=== PATIENT | female | born 1945 | race Caucasian/White ===

== ENCOUNTER 2023-10-09 09:54 | Outpatient (CLI) | payer MEDICARE, MEDICAID ==
[2023-10-09 10:47] LABS: ALBUMIN 3.8 G/DL (3.4-5.0); ANION GAP 10 (8-16); BLOOD UREA NITROGEN 30 MG/DL (7-18); CALCIUM 9.6 MG/DL (8.5-10.1); CHLORIDE 104 MMOL/L (99-107); CREATININE 0.91 MG/DL (0.40-0.90); GLUCOSE 157 MG/DL (70-104); SODIUM 142 MMOL/L (135-145); TOTAL CARBON DIOXIDE 28.4 MMOL/L (24-32); eGFR 59 ML/MIN
[2023-10-09] MEDS ORDERED: GADOTERATE MEGLUMINE 7.5 MMOL/15 ML VIAL IV ONE (12:24)
== END 2023-10-09 23:59 | disposition home or self-care (01) ==
LOC: MRI 09:54
PROVIDERS: ATTEND Internal Medicine
DX: M48.03 Spinal stenosis, cervicothoracic region (principal); M47.812 Spondylosis without myelopathy or radiculopathy, cervical region; M86.9 Osteomyelitis, unspecified
CPT/HCPCS: 36415; 72156; 80048; A9575

== ENCOUNTER 2023-10-13 11:13 | Outpatient (CLI) | payer MEDICARE, MEDICAID | END 2023-10-13 23:59 | disposition home or self-care (01) | LOC: CARD DIAG 11:13 | PROVIDERS: ATTEND Physician Assistant | DX: I08.8 Other rheumatic multiple valve diseases (principal); R01.1 Cardiac murmur, unspecified; M79.642 Pain in left hand | CPT/HCPCS: 73110; 73130; C8929; 93306 ==

== ENCOUNTER 2023-10-14 10:28 | Outpatient (CLI) | payer MEDICARE, MEDICAID | END 2023-10-14 23:59 | disposition home or self-care (01) | LOC: MRI 10:28 → EDUNIT# 11:00 → MRI 23:59 | PROVIDERS: ATTEND Internal Medicine | DX: M19.042 Primary osteoarthritis, left hand (principal); R22.32 Localized swelling, mass and lump, left upper limb; W55.01XD Bitten by cat, subsequent encounter | CPT/HCPCS: 73218 ==

== ENCOUNTER 2023-12-30 09:38 | Day surgery (SDC) | payer MEDICARE, MEDICAID ==
[2023-12-26 12:40] LABS: BASOPHILS # (AUTO) 0.1 X10'3 (0-0.2); BASOPHILS % (AUTO) 0.9 % (0-1); EOSINOPHILS # (AUTO) 0.1 X10'3 (0-0.9); EOSINOPHILS % (AUTO) 0.9 % (0-6); HEMATOCRIT 37.1 % (35.0-45.0); HEMOGLOBIN 12.9 g/dl (12.0-16.0); LYMPHOCYTES # (AUTO) 2.3 X10'3 (1.1-4.8); LYMPHOCYTES % (AUTO) 22.6 % (21-51); MEAN CORPUSCULAR HEMOGLOBIN 33.2 PG (27.0-31.0); MEAN CORPUSCULAR HGB CONC 34.9 g/dL (33.0-36.5); MEAN PLATELET VOLUME 8.2 FL (7.4-10.4); MONOCYTES # (AUTO) 0.8 X10'3 (0-0.9); MONOCYTES % (AUTO) 7.8 % (2-12); NEUTROPHILS # (AUTO) 6.9 X10'3 (1.8-7.7); NEUTROPHILS % (AUTO) 67.8 % (42-75); PLATELET COUNT 229 X10'3 (140-440); RED CELL DISTRIBUTION WIDTH 13.9 % (11.5-14.5); WHITE BLOOD COUNT 10.2 X10'3 (4.5-11.0)
[2023-12-26 12:47] LABS: APTT 25 SECONDS (22-32)
[2023-12-26 12:50] LABS: ALBUMIN 3.9 G/DL (3.4-5.0); ANION GAP 5 (8-16); BLOOD UREA NITROGEN 22 MG/DL (7-18); BUN/CREATININE RATIO 22.7 (10.0-20.0); CALCIUM 9.1 MG/DL (8.5-10.1); CHLORIDE 105 MMOL/L (99-107); CHOL/HDL RATIO 3.2 (0.00-4.99); CHOLESTEROL 201 MG/DL (0-200); CREATININE 0.97 MG/DL (0.40-0.90); GLUCOSE 138 MG/DL (70-104); HDL CHOLESTEROL 62 MG/DL (35-60); LDL CHOLESTEROL 115 MG/DL (50-100); POTASSIUM 3.8 MMOL/L (3.5-5.1); SODIUM 140 MMOL/L (135-145); TOTAL CARBON DIOXIDE 29.6 MMOL/L (24-32); TRIGLYCERIDES 168 MG/DL (20-135); eGFR 55 ML/MIN
[~2023-12-30] VITALS: Ht 152.4 cm; Wt 66.5 kg
[2023-12-30] VITALS (10 sets, daily range): BP systolic 145–175; BP diastolic 50–72; PULSE 56–64; RESP 12–20; TEMP 98; O2SAT 15–97
[2023-12-30] MEDS ORDERED: ATEN25TA PO (10:10)
[2023-12-30] MEDS ORDERED: NITR0.3T10 SL (10:10)
[2023-12-30] MEDS ORDERED: ESCI20TA39 PO (10:10)
[2023-12-30] MEDS ORDERED: OSC500T PO (10:10)
[2023-12-30] MEDS ORDERED: TRAZ150T78 PO (10:10)
[2023-12-30] MEDS ORDERED: BENA40TA72 PO (10:10)
[2023-12-30] MEDS ORDERED: CHOL200074 PO (10:10)
[2023-12-30] MEDS ORDERED: ASPI-611 PO (10:10)
[2023-12-30] MEDS ORDERED: DULO20CA18 PO (10:10)
[2023-12-30] MEDS ORDERED: ATOR40TA72 PO (10:10)
[2023-12-30] MEDS ORDERED: HYDR25TA4 PO (10:10)
[2023-12-30] MEDS ORDERED: LIDOcaine 1% (10mg/ml) 2ml vial ONE (11:16)
[2023-12-30] MEDS ORDERED: iohexol 350MG/ML 100ml bottle IV ONE (11:16)
[2023-12-30] MEDS ORDERED: heparin 1,000unit/ml 10ml vial 10 ML ONE (11:16)
[2023-12-30] MEDS ORDERED: verapamil 2.5 mg/ml inj IV ONE ×2 (11:16→11:56)
[2023-12-30] MEDS ORDERED: nitroGLYCERIN 500mcg/5mL D5W 5 ML IV ONE (11:17)
[2023-12-30] MEDS ORDERED: LIDOcaine 1% 30ml preserv. free vial ONE (11:26)
[2023-12-30] MEDS ORDERED: midazolam 1 mg/ML 2ml injection ONE (11:34)
[2023-12-30] MEDS ORDERED: fentaNYL/PF 50MCG/1 ML 2ML syringe ONE (11:34)
[2023-12-30] MEDS: normal saline 1,000 ML IV SCH (12:03)
[2023-12-30] MEDS: LORazepam 0.5 MG tablet PO PRN (12:03)
[2023-12-30] MEDS: diphenhydrAMINE 25mg capsule PO PRN (12:03)
[2023-12-30 13:27] LABS: ISTAT HGB ART 11.2 g/dl (12.0-16.0); ISTAT Hct ART 33 %PCV (35-45); ISTAT O2 SATURATION ARTERIAL 94 % (95-98); ISTAT SOURCE ART
[2023-12-30] MEDS ORDERED: HYDROcodone/acetaminophen 10/325mg tab PO PRN (13:50)
[2023-12-30] MEDS ORDERED: HYDROcodone/acetaminophen 5mg/325mg tablet PO PRN (13:50)
== END 2023-12-30 16:20 | disposition home or self-care (01) ==
LOC: SSTAY O 09:38
PROVIDERS: ATTEND Internal Medicine Interventional Cardiology
DX: I35.0 Nonrheumatic aortic (valve) stenosis (principal); I25.10 Atherosclerotic heart disease of native coronary artery without angina pectoris; R94.31 Abnormal electrocardiogram [ECG] [EKG]; I10 Essential (primary) hypertension; E11.9 Type 2 diabetes mellitus without complications; E78.00 Pure hypercholesterolemia, unspecified; I48.91 Unspecified atrial fibrillation; Z85.3 Personal history of malignant neoplasm of breast; Z79.899 Other long term (current) drug therapy; Z91.030 Bee allergy status; Z88.8 Allergy status to other drugs, medicaments and biological substances
CPT/HCPCS: 36415; 80048; 80061; 82803; 85014; 85025; 85610; 85730; 93005; 93456; 99152; A6258; A6402; C1751; C1894; J1644; J2003; J2250; J3010; J3490; J7030; Q0163; Q9967; Z7610; A6449

== ENCOUNTER 2024-01-27 10:34 | Outpatient (CLI) | payer MEDICARE, MEDICAID ==
[~2024-01-27 10:34] MED LIST: ASPI-611 PO; ATEN25TA PO; ATOR40TA72 PO; BENA40TA72 PO; CHOL200074 PO; DULO20CA18 PO; ESCI20TA39 PO; HYDR25TA4 PO; NITR0.3T10 SL; OSC500T PO; TRAZ150T78 PO
[2024-01-27 11:14] LABS: BASOPHILS # (AUTO) 0.1 X10'3 (0-0.2); BASOPHILS % (AUTO) 0.7 % (0-1); EOSINOPHILS # (AUTO) 0.2 X10'3 (0-0.9); EOSINOPHILS % (AUTO) 1.6 % (0-6); HEMATOCRIT 34.6 % (35.0-45.0); HEMOGLOBIN 12.2 g/dl (12.0-16.0); LYMPHOCYTES # (AUTO) 1.9 X10'3 (1.1-4.8); LYMPHOCYTES % (AUTO) 19.3 % (21-51); MEAN CORPUSCULAR HEMOGLOBIN 33.5 PG (27.0-31.0); MEAN CORPUSCULAR HGB CONC 35.4 g/dL (33.0-36.5); MEAN CORPUSCULAR VOLUME 94.7 FL (78-98); MEAN PLATELET VOLUME 7.6 FL (7.4-10.4); MONOCYTES # (AUTO) 0.8 X10'3 (0-0.9); MONOCYTES % (AUTO) 7.9 % (2-12); NEUTROPHILS % (AUTO) 70.5 % (42-75); PLATELET COUNT 221 X10'3 (140-440); RED BLOOD COUNT 3.66 X10'6 (4.20-5.60); WHITE BLOOD COUNT 9.9 X10'3 (4.5-11.0)
[2024-01-27 12:03] LABS: ALANINE AMINOTRANSFERASE 18 U/L (12-78); ALBUMIN 3.6 G/DL (3.4-5.0); ALBUMIN/GLOBULIN RATIO 1.1 (1.1-1.5); ALKALINE PHOSPHATASE 57 IU/L (46-116); ANION GAP 6 (8-16); ASPARTATE AMINO TRANSFERASE 16 U/L (10-37); BILIRUBIN,TOTAL 0.4 MG/DL (0.1-1.0); BLOOD UREA NITROGEN 22 MG/DL (7-18); BUN/CREATININE RATIO 27.2 (10.0-20.0); CALCIUM 8.9 MG/DL (8.5-10.1); CHLORIDE 106 MMOL/L (99-107); CREATININE 0.81 MG/DL (0.40-0.90); GLUCOSE 128 MG/DL (70-104); POTASSIUM 4.2 MMOL/L (3.5-5.1); PRO BRAIN NATRIURETIC PEPTIDE 627 PG/ML (0-450); SODIUM 141 MMOL/L (135-145); TOTAL CARBON DIOXIDE 28.7 MMOL/L (24-32); TOTAL PROTEIN 6.9 G/DL (6.4-8.2); eGFR 68 ML/MIN
[2024-01-27] MEDS ORDERED: IODIXANOL 320 MG/ML INFUS..BTL 100ML IV ONE (12:05)
[2024-01-27 12:49] LABS: APTT 25 SECONDS (22-32)
[2024-01-27 12:59] LABS: PROTHROMBIN TIME 10.3 SECONDS (9.0-12.0)
== END 2024-01-27 23:59 | disposition home or self-care (01) ==
LOC: RAD 10:34
PROVIDERS: ATTEND Internal Medicine Cardiovascular Disease
DX: I35.0 Nonrheumatic aortic (valve) stenosis (principal); R06.02 Shortness of breath; I65.29 Occlusion and stenosis of unspecified carotid artery; N28.1 Cyst of kidney, acquired; K57.30 Diverticulosis of large intestine without perforation or abscess without bleeding; E27.8 Other specified disorders of adrenal gland; J98.11 Atelectasis; J98.4 Other disorders of lung
CPT/HCPCS: 36415; 71046; 71275; 74174; 75572; 80053; 83880; 85025; 85610; 85730; Q9967

== ENCOUNTER 2024-04-04 13:28 | Emergency (ER) | payer MEDICARE, MEDICAID ==
[~2024-04-04] VITALS: Ht 152.4 cm; Wt 75.0 kg
[~2024-04-04 13:28] MED LIST changes: -ATEN25TA PO; +ATEN50TA8 PO; +ONDA-243 PO
[2024-04-04] MEDS: diphenhydrAMINE 50 mg/ml inj IV ONE (14:08)
[2024-04-04] MEDS: LORazepam 2 mg/ml vial IV ONE (14:11)
[2024-04-04 14:30] LABS: ALANINE AMINOTRANSFERASE 21 U/L (12-78); ALBUMIN 3.5 G/DL (3.4-5.0); ALKALINE PHOSPHATASE 63 IU/L (46-116); ANION GAP 7 (8-16); BILIRUBIN,TOTAL 0.5 MG/DL (0.1-1.0); BLOOD UREA NITROGEN 18 MG/DL (7-18); BUN/CREATININE RATIO 20.7 (10.0-20.0); CHLORIDE 103 MMOL/L (99-107); CREATININE 0.87 MG/DL (0.40-0.90); GLUCOSE 104 MG/DL (70-104); SODIUM 140 MMOL/L (135-145); TOTAL CARBON DIOXIDE 29.9 MMOL/L (24-32); TOTAL PROTEIN 6.9 G/DL (6.4-8.2); eCRCL 36 ML/MIN; eGFR 62 ML/MIN
[2024-04-04 14:32] LABS: ASPARTATE AMINO TRANSFERASE 26 U/L (10-37); POTASSIUM 4.7 MMOL/L (3.5-5.1)
[2024-04-04 15:06] LABS: BILIRUBIN,URINE NEGATIVE (Neg); CLARITY,URINE CLEAR (Clear); COLOR,URINE YELLOW (Yellow); GLUCOSE, URINE NEGATIVE (Neg); KETONES,URINE NEGATIVE (Neg); LEUKOCYTE ESTERASE ,URINE NEGATIVE (Neg); NITRITES, URINE NEGATIVE (Neg); OCCULT BLOOD,URINE NEGATIVE (Neg); PH,URINE 7.5 (4.8-8.0); PROTEIN,URINE 100 mg/dl (Neg); UROBILINOGEN,URINE 0.2 E.U/dL (0.2-1.0)
[2024-04-04 15:11] LABS: UA COLLECTION TYPE NON-SPECIFIED
[2024-04-04 15:14] LABS: BASOPHILS # (AUTO) 0.1 X10'3 (0-0.2); BASOPHILS % (AUTO) 0.7 % (0-1); EOSINOPHILS # (AUTO) 0.1 X10'3 (0-0.9); EOSINOPHILS % (AUTO) 0.6 % (0-6); HEMOGLOBIN 10.4 g/dl (12.0-16.0); LYMPHOCYTES # (AUTO) 2.1 X10'3 (1.1-4.8); LYMPHOCYTES % (AUTO) 23.7 % (21-51); MEAN PLATELET VOLUME 7.9 FL (7.4-10.4); MONOCYTES # (AUTO) 0.9 X10'3 (0-0.9); NEUTROPHILS # (AUTO) 5.7 X10'3 (1.8-7.7); PLATELET COUNT 172 X10'3 (140-440); WHITE BLOOD COUNT 8.7 X10'3 (4.5-11.0)
[2024-04-04 15:30] LABS: BACTERIA,URINE FEW /HPF (Neg); MUCUS STRANDS FEW /LPF (Neg); RBC,URINE 0-2 /HPF (0-2); SQUAMOUS EPITHELIAL CELL,UR FEW /LPF (FEW); TRANSITIONAL EPI CELLS,URINE FEW /HPF; URIC ACID CRYSTALS FEW /HPF (NEGATIVE); WBC,URINE 0-4 /HPF (0-4)
[2024-04-04 15:37] VITALS: BP 141/57; PULSE 62; RESP 16; O2SAT 93
[2024-04-04 15:43] LABS: HEMATOCRIT 29.1 % (35.0-45.0); MEAN CORPUSCULAR HEMOGLOBIN 33.5 PG (27.0-31.0); MEAN CORPUSCULAR HGB CONC 35.7 g/dL (33.0-36.5); MEAN CORPUSCULAR VOLUME 93.9 FL (78-98)
[2024-04-04 16:03] VITALS: TEMP 99.1
== END 2024-04-04 16:04 | disposition home or self-care (01) ==
LOC: ER 13:28
DX: Z91.030 Bee allergy status (principal); Z88.6 Allergy status to analgesic agent; Z88.8 Allergy status to other drugs, medicaments and biological substances; Z95.2 Presence of prosthetic heart valve; G25.3 Myoclonus
CPT/HCPCS: 36415; 71045; 80053; 81001; 85025; 96374; 96375; 99284; J1200; J2060

== ENCOUNTER 2025-01-09 12:37 | Emergency (ER) | payer MEDICARE, MEDICAID ==
[~2025-01-09] VITALS: Ht 152.4 cm; Wt 67.3 kg
--- NOTE | 2025-01-09 12:42 | ELECTROCARDIOGRAPH REPORT ---
[facility] Test Date: 2025-01-09 Test Time: 12:40:32 Pat Name: JOHNNIE GONZALES Department: EMERGENCY ROOM Room: Gender: F Crew Dispatcher: JERMAN : 1945 Requested By: LINSEY FRAGA Order Number: [id number] Reading MD: Dr. Ervin Curran Measurements Intervals Arnold Rate: 73 P: 29 IN: 175 QRS: 23 QRSD: 105 T: -10 QT: 394 QTc: 435 Interpretive Statements Sinus rhythm Borderline repolarization abnormality Electronically Signed On 01-10-2025 7:00:[address] Ervin Curran Please click the below link to view image of tracing.
[2025-01-09 12:43] VITALS: BP 130/39; PULSE 73; O2SAT 90
[2025-01-09 13:11] VITALS: RESP 13
[2025-01-09 13:31] LABS: MEAN PLATELET VOLUME 8.2 FL (7.4-10.4); RED CELL DISTRIBUTION WIDTH 14.0 % (11.5-14.5)
--- NOTE | 2025-01-09 13:38 | Physician Documentation ---
History of Present Illness ~ Chief Complaint: Chest Pain Stated Complaint: CHEST PAIN Time Seen by MD: 13:18 Primary Medical Doctor: Dr. Clinton Source: patient, family Mode of Arrival: POV, Ambulatory Exam Limitations: no limitations HPI 79-year-old female brought in by daughter for chest pain that is been going on for approximately 10 days. Patient states that the chest pain started when she woke up about a week and a half ago. Patient denies any cough or shortness of breath. Patient states the pain is constant like a dull ache but then becomes sharp with movement and deep breathing. Patient states the only thing different that is occurred in the past 3-4 weeks was the methods in which she smokes marijuana. Daughter states she has smoked mainly at night for several years but recently has started to use a vape for marijuana. Patient states she has use at for several weeks prior to the chest pain started. 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 Ejection fraction then was 70%. Patient denies any shortness of breath, fevers, cough for congestion. Medication Reconciliation Allergies: Coded Allergies: bee venom protein (honey bee) (Verified Allergy, Unknown, SWELLING, ITCHING, 01/09/25) latex (Verified Allergy, Unknown, ITCHY, RED, 01/09/25) Uncoded Allergies: UNCODED ALLERGY (Allergy, Unknown, NAUSEA, 03/31/24) Scheduled Aspirin (Aspir 81), 1 TAB PO DAILY, (Reported) Atenolol (Atenolol), 1 TAB PO DAILY Atorvastatin Calcium (Atorvastatin Calcium), 1 TAB PO DAILY, (Reported) Benazepril HCl (Benazepril HCl), 1 TAB PO DAILY, (Reported) Calcium Carbonate* (Oscal*), 1 TAB PO Q12H, (Reported) Cholecalciferol (Vitamin D3) (Vitamin D3), 1 CAP PO DAILY, (Reported) Duloxetine HCl (Duloxetine HCl), 1 CAP PO HS, (Reported) Escitalopram Oxalate (Escitalopram Oxalate), 1 TAB PO DAILY, (Reported) Hydrochlorothiazide (Hydrochlorothiazide), 1 TAB PO DAILY, (Reported) Nitroglycerin (Nitroglycerin), 1 TAB SL PRN, (Reported) Trazodone Hcl (Trazodone Hcl), 1 TAB PO HS, (Reported) Scheduled PRN ONDANSETRON ODT 4mg tablet (Ondansetron Odt), 0.5 TAB PO Q6H PRN PRN for nausea/vomiting Past Medical History Past Medical History: *CARDIOVASCULAR*, Coronary Artery Disease, Heart Valve Di sease, Mitral Valve Stenosis Past Surgical History: heart valve surgery Drug Use: marijuana Lives with: Alone Lives In: Home Occupation: retired Review of Systems All Other Systems at this time: Reviewed and Negative Cardiovascular: Reports: see HPI Physical Exam Vital Signs: RN Vital Signs have been reviewed: Yes, Temperature: 97.7, Source: Temporal, Heart Rate: 73, Respiratory Rate: 13, BP: 130/39, Pulse Oximetry: 90, Weight: 67.300 Oxygen Flow Rate: 0 Physical Exam General: Alert, no apparent distress. HEENT: PERRL, EOMI, no injection, moist mucous membranes. Neck: Full range of motion. Respiratory: Lungs clear, no respiratory distress. Chest: No accessory muscle use. Tenderness to the costochondral region of her sternum to the left but no obvious deformity or swelling Cardiovascular: Regular rate and rhythm, no murmurs. S1-S2 murmur auscultated by TAVR. Extremities: Normal range of motion, no deformity. Neurologic: Oriented x4. Psychiatric: Normal mood and affect. Skin: Normal color, warm and dry. No edema, no ecchymosis. Progress Results/Orders Results/Orders Vital Signs 01/09/25 01/09/25 12:43 13:11 Temp 97.7 Pulse 73 Resp 20 13 B/P (MAP) 130/39 Pulse Ox 90 O2 Flow Rate 0 Laboratory Tests Test 01/09/25 13:04 White Blood Count 6.6 Red Blood Count 3.24 L Hemoglobin 11.1 L Hematocrit 32.0 L Mean Corpuscular Volume 98.6 H Mean Corpuscular Hemoglobin 34.3 H Mean Corpuscular Hemoglobin Concent 34.8 Red Cell Distribution Width 14.0 Platelet Count 198 Mean Platelet Volume 8.2 Neutrophils (%) (Auto) 74.8 Lymphocytes (%) (Auto) 17.8 L Monocytes (%) (Auto) 6.4 Eosinophils (%) (Auto) 0.5 Basophils (%) (Auto) 0.5 Neutrophils # (Auto) 4.9 Lymphocytes # (Auto) 1.2 Monocytes # (Auto) 0.4 Eosinophils # (Auto) 0.0 Basophils # (Auto) 0.0 CBC Comment Sodium Level 140 Potassium Level 3.9 Chloride Level 104 Carbon Dioxide Level 27.4 Anion Gap 9 Blood Urea Nitrogen 36 H Creatinine 1.00 H Estimated GFR/1.73 m2 53 BUN/Creatinine Ratio 36.0 H Glucose Level 205 H Calcium Level 8.9 Troponin I High Sensitivity 8 Pro-B-Type Natriuretic Peptide 180 Albumin 3.6 Chemistry Comments EKG/XRAY/CT/US/VASC/MRI EKG : Additional Comment 1240: Sinus rhythm at [address]-T abnormalities normal axis Chest X-Ray : Additional Comments DI CHEST,SINGLE VIEW, HISTORY: CP COMPARISON: DI CHEST,SINGLE VIEW on DOS: 04/04/24, DI CHEST,SINGLE VIEW on DOS: 04/02/24, DI CHEST,TWO VIEWS on DOS: 03/26/24 DI CHEST,SINGLE VIEW on DOS: 04/04/24, DI CHEST,SINGLE VIEW on DOS: 04/02/24, DI CHEST,TWO VIEWS on DOS: 03/26/24 TECHNICAL DATA: 1 view of the chest was obtained. FINDINGS: Lines and tubes: None Cardiomediastinal silhouette: normal Pulmonary vasculature: normal Lung expansion: normal Lung airspace: normal Lung interstitium: normal Pleura: normal Pneumothorax: no Bones: Unremarkable Other: no IMPRESSION: No acute intrathoracic abnormality. Electronically Signed by:KEVIN DAVIS MD Date & Time: 01/09/25 1356 Dictated by: KEVIN DAVIS MD Dictation date and time: 01/09/25 1318 Primary Care Provider: NO PRIMARY CARE PROVIDER cc: LINSEY FRAGA MD ~ Heart Score: Heart Score Response (Comments) Value History Slightly Suspicious 0 EKG Normal 0 Age >65 2 Risk Factors 1 or 2 risk factors 1 Troponin Normal limit 0 Total 3 Medical Decision Making Additional information obtaine: old records Findings Patient's pain as a constant ache but reproducible sharp pain with movement and deep breathing. Patient's only other event that could be triggering is changing the methods/route that she and takes marijuana by vaping now instead of smoking it. Patient's vital signs are reassuring. 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 Daughter brought her in after she told her that she has been having chest pain even for a week and a half. Patient's daughter states that they do desire to go home have a doctor's appointment on Friday. Due to patient's troponin being negative vital signs reassuring and reproducible pain likely chest wall pain costochondritis the sheet states that she has been lifting heavy laundry baskets as well as taking care of her cat. Patient would like close follow up and discharge. Heart Score: 3 Differential Dx:Considerations: Include: angina, chest wall pain, CHF, costochondritis, esophageal reflux/spasm, gastritis, myocardial infarction, pneumonia Departure Time of Disposition: 14:17 Impression: Primary Impression: Chest wall pain Condition: Stable Discharge Instructions: Chest Wall Pain Additional Instructions: Follow up with your doctor on Friday monitor for any new or worsening symptoms and feel free to return Referrals: NO PRIMARY CARE PROVIDER (PCP) Prescriptions Lidocaine (Lidocaine) 5 % Adh..patch 1 PATCH TOP DAILY for 30 Days, #30 PATCH 0 Refills Prov: CAROLIN PIÑA NP 01/09/25 Education Educated: Patient, Family Educated regarding: diagnosis, treatment, need for follow up Signature Scribe Signature: No scribe Attestation: The note accurately reflects work and decisions made by me.Carolin TA 01/09/25 13:44 CAROLIN PIÑA NP Jan 09, 2025 13:38
[2025-01-09 13:47] LABS: CREATININE 1.00 MG/DL (0.40-0.90); PRO BRAIN NATRIURETIC PEPTIDE 180 PG/ML (0-450); TOTAL CARBON DIOXIDE 27.4 MMOL/L (24-32); eCRCL 32 ML/MIN; eGFR 53 ML/MIN
--- NOTE | 2025-01-09 13:59 | RADIOLOGY REPORT ---
DI CHEST,SINGLE VIEW, HISTORY: CP COMPARISON: DI CHEST,SINGLE VIEW on DOS: 04/04/24, DI CHEST,SINGLE VIEW on DOS: 04/02/24, DI CHEST,TWO VIEWS on DOS: 03/26/24 DI CHEST,SINGLE VIEW on DOS: 04/04/24, DI CHEST,SINGLE VIEW on DOS: 04/02/24, DI CHEST,TWO VIEWS on DOS: 03/26/24 TECHNICAL DATA: 1 view of the chest was obtained. FINDINGS: Lines and tubes: None Cardiomediastinal silhouette: normal Pulmonary vasculature: normal Lung expansion: normal Lung airspace: normal Lung interstitium: normal Pleura: normal Pneumothorax: no Bones: Unremarkable Other: no IMPRESSION: No acute intrathoracic abnormality.
[2025-01-09] MEDS ORDERED: LIDO700A47 TOP (14:18)
[2025-01-09 14:34] VITALS: TEMP 97.7
== END 2025-01-09 14:35 | disposition home or self-care (01) ==
LOC: ER 12:37
DX: R07.89 Other chest pain (principal); F12.90 Cannabis use, unspecified, uncomplicated; I25.10 Atherosclerotic heart disease of native coronary artery without angina pectoris; Z91.030 Bee allergy status; Z91.040 Latex allergy status; Z79.82 Long term (current) use of aspirin; Z79.899 Other long term (current) drug therapy; Z60.2 Problems related to living alone
CPT/HCPCS: 36415; 71045; 80048; 83880; 84484; 85025; 93005; 99285